=== PATIENT | female | born 1990 | race Caucasian/White ===

== ENCOUNTER 2017-03-08 05:26 | Emergency (ER) | payer OTHER ==
[~2017-03-08] VITALS: Ht 160 cm; Wt 54.4 kg
[2017-03-08 05:30] VITALS: BP_SYST 128
--- NOTE | 2017-03-08 05:38 | NUR ---
Pt complian of flu like symptom and pt was noted confused couple of hours ago by the pt's abraham at bedside. Pt has a history of seizure and MS. Pt afebrile. Pt on bed rest. will continue to monitor
--- NOTE | 2017-03-08 05:45 | NUR ---
ER at bedside examining patient.
[2017-03-08 06:45] VITALS: BP_SYST 128
--- NOTE | 2017-03-08 06:45 | NUR ---
Patient given written and verbal discharge instructions and verbalizes understanding. ER MD discussed with patient the results and treatment provided. Patient in stable condition. Rx of augmentine and promrthezine given. Patient educated on pain management and to follow up with PMD. Pain Scale 0/10. Opportunity for questions provided and answered.
== END 2017-03-08 06:45 | disposition home or self-care (01) ==
LOC: SED 05:26
DX: J20.9 Acute bronchitis, unspecified (principal)
CPT/HCPCS: 71010; 99283